=== PATIENT | male | born 1930 | race Caucasian/White ===

== ENCOUNTER 2017-09-08 14:34 | Inpatient (IN) | payer MEDICARE, OTHER ==
[2017-09-08] MEDS ORDERED: Ondansetron 4 MG/2 ML SDV IVPUSH ONE (14:56)
[2017-09-08] MEDS ORDERED: Sodium Chloride 0.9% 1,000 ML IV SCH (15:00)
[2017-09-08] MEDS ORDERED: Acetaminophen 325 MG Tab PO ONE (15:07)
[2017-09-08] MEDS: Sodium Chloride 0.9% 10 ML Syringe FLUSH PRN (15:19)
--- NOTE | 2017-09-08 15:52 | CT ---
Head CT Technique: Multiple axial sections through the brain were obtained. Intravenous contrast was not utilized. Comparison: No previous intracranial imaging. Findings: Ventricles along with basal cisterns and sulci over the convexities are mildly prominent. Diminished density is noted within the periventricular white matter compatible with small vessel ischemic demyelination change. 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 No evidence of intracranial hemorrhage. No midline shift or mass effect is seen. Visualized sinuses are clear. No acute calvarial abnormality is seen. Impression: 1. Senescent change as described above. No acute intracranial abnormality is identified. Diagnostic code #2
[2017-09-08] MEDS ORDERED: Levofloxacin/Dextrose 5%-Water 750 MG in Premix Bag 1 BAG IV ONE (16:43)
--- NOTE | 2017-09-08 17:01 | EDM.PDOC ---
ED HPI GENERAL MEDICAL PROBLEM - General Chief Complaint: General Stated Complaint: VOMITING/CONFUSION Time Seen by Provider: 09/08/17 14:50 Source of Information: Reports: Patient History Limitations: Reports: No Limitations - History of Present Illness INITIAL COMMENTS - FREE TEXT/NARRATIVE: The patient presents with generalized weakness, fever, cough, nausea, vomiting and diarrhea. The patient was in [place] visiting relatives. He drove home yesterday and today he went to [place] for his brother's . This morning he ate some cereal when he got up. He was not feeling well. He has dementia. He slept most of the way to [place]. They got to [place] and he was stiff and passed out for a short time and vomited. They were close to [facility] and went to the ER. He had a complete work up that includes labs, EKG and CXR. His CBC looked good and his electrolytes were okay. His CXR shows a possible infiltrate in the left. That did not fit his symptoms. He did not have much of a cough. He had no fever and he had no elevated WBC. He was sent home with instructions on vasovagal syncope. They drove home and he was less responsive, more confused, generalized weakness, cough and a fever. He had diarrhea and vomiting. Onset: Gradual Duration: Hour(s): Severity: Moderate Improves with: Reports: None Worsens with: Reports: None Associated Symptoms: Reports: Cough, Fever/Chills, Nausea/Vomiting. Denies: Chest Pain - Related Data Allergies Allergy/AdvReac Type Severity Reaction Status Date / Time No Known Allergies Allergy Verified 09/08/17 16:34 Home Meds: Home Meds Ascorbic Acid [Vitamin C] 500 mg PO DAILY 09/08/17 [History] Bicalutamide [Casodex] 50 mg PO DAILY 09/08/17 [History] Calcium Carbonate [Calcium] 600 mg PO DAILY 09/08/17 [History] Cholecalciferol (Vitamin D3) [Vitamin D3] 1,000 unit PO DAILY 09/08/17 [History] Donepezil [Aricept] 10 mg PO BEDTIME 09/08/17 [History] Memantine [Namenda] 10 mg PO BID 09/08/17 [History] Multivitamin [Multi-Vitamin Daily] 1 each PO DAILY 09/08/17 [History] [place]-3/DHA/Epa/Fish Oil [[place]-3 Fish Oil 1,000 MG Sfgl] 1,000 mg PO DAILY [History] Saw/Vit E/Sod Roxann/Lyc/Beta/Pyg [Prostate Health Caplet] 1 each PO DAILY [History] Vit A/Vit C/Vit E/Zinc/Copper [Preservision] 1 each PO DAILY 09/08/17 [History] Zolpidem [Ambien] 10 mg PO BEDTIME 09/08/17 [History] busPIRone [Buspar] 5 mg PO DAILY 09/08/17 [History] Past Medical History HEENT History: Reports: Cataract, Macular Degeneration Musculoskeletal History: Reports: Arthritis Other Musculoskeletal History: in spine and knees. Oncologic (Cancer) History: Reports: Prostate - Infectious Disease History Infectious Disease History: Reports: Rheumatic Fever Social & Family History - Family History Family Medical History: Noncontributory - Tobacco Use Smoking Status *Q: Never Smoker - Caffeine Use Caffeine Use: Reports: None - Recreational Drug Use Recreational Drug Use: No ED ROS GENERAL - Review of Systems Review Of Systems: See Below Constitutional: Reports: Fever, Chills, Malaise, Weakness, Fatigue HEENT: Reports: No Symptoms Respiratory: Reports: Cough Cardiovascular: Denies: Chest Pain Endocrine: Reports: Fatigue GI/Abdominal: Reports: Diarrhea, Nausea, Vomiting. Denies: Abdominal Pain : Reports: No Symptoms Musculoskeletal: Reports: No Symptoms ED EXAM, GENERAL - Physical Exam Exam: See Below Exam Limited By: No Limitations General Appearance: No Apparent Distress, Lethargic Ears: Normal External Exam Nose: Normal Inspection Throat/Mouth: Other (Dry mucus membranes) Head: Atraumatic, Normocephalic Neck: Normal Inspection Respiratory/Chest: No Respiratory Distress, Lungs Clear, Normal Breath Sounds Cardiovascular: Regular Rate, Rhythm, No Edema, No Murmur GI/Abdominal: Soft, Non-Tender, No Organomegaly, No Mass Back Exam: Normal Inspection Extremities: Normal Inspection Neurological: Alert, Oriented, No Motor/Sensory Deficits EKG INTERPRETATION EKG Date: 09/08/17 Time: 15:18 Rhythm: NSR Rate (Beats/Min): 85 [place]: Normal P-Wave: Present QRS: RBBB Course - Vital Signs Last Recorded V/S: Last Vital Signs Temp 97.9 F 09/08/17 16:31 Pulse 87 09/08/17 17:42 Resp 20 09/08/17 17:42 BP 111/79 09/08/17 17:42 Pulse Ox 96 09/08/17 17:42 - Orders/Labs/Meds Orders: Active Orders 24 hr Category Date Time Status Cardiac Monitoring [RC] . DIRECTED Care 09/08/17 14:56 Active Peripheral IV Care [RC] . DIRECTED Care 09/08/17 14:57 Active CULTURE BLOOD [BC] Stat Lab 09/08/17 14:58 Ordered CULTURE BLOOD [BC] Stat Lab 09/08/17 14:58 Ordered Levofloxacin/Dextrose 5%-Water [Levaquin in D5W 750 MG/ Med 09/08/17 16:43 Active 150 ML] 750 mg Premix Bag 1 bag IV ONETIME Sodium Chloride 0.9% [Normal Saline] 1,000 ml Med 09/08/17 15:00 Active IV .BOLUS Sodium Chloride 0.9% [Normal Saline] 1,300 ml Med 09/08/17 16:52 Active IV ONETIME Sodium Chloride 0.9% [Saline Flush] Med 09/08/17 14:56 Active 10 ml FLUSH ASDIRECTED PRN Blood Culture x2 Reflex Set [OM.PC] Stat Oth 09/08/17 14:58 Ordered ED Antiemetic Medication Reflex [OM.PC] Stat Oth 09/08/17 14:57 Ordered Peripheral IV Insertion Adult [OM.PC] Stat Oth 09/08/17 14:56 Ordered Medication Orders Sodium Chloride (Normal Saline) 1,000 mls @ 1,000 mls/hr IV .BOLUS JAMIE Last Admin: 09/08/17 15:27 Dose: 1,000 mls/hr Levofloxacin/Dextrose 750 mg/ (Premix) 150 mls @ 100 mls/hr IV ONETIME ONE Stop: 09/08/17 18:12 Last Admin: 09/08/17 16:56 Dose: 100 mls/hr Sodium Chloride (Normal Saline) 1,300 mls @ 1,000 mls/hr IV ONETIME ONE Stop: 09/08/17 18:09 Last Admin: 09/08/17 17:03 Dose: 1,000 mls/hr Sodium Chloride (Saline Flush) 10 ml FLUSH ASDIRECTED PRN PRN Reason: Keep Vein Open Last Admin: 09/08/17 15:19 Dose: 10 ml Labs: Laboratory Tests 09/08/17 09/08/17 09/08/17 Range/Units 14:56 14:56 16:00 WBC 6.61 (4.23-9.07) K/mm3 RBC 4.81 (4.63-6.08) M/mm3 Hgb 14.9 (13.7-17.5) gm/L Hct 44.4 (40.1-51.0) % MCV 92.3 H (79.0-92.2) fl MCH 31.0 (25.7-32.2) pg MCHC 33.6 (32.2-35.5) g/dl RDW Std Deviation 44.7 H (35.1-43.9) fL Plt Count 194 (163-337) K/mm3 MPV 11.0 (9.4-12.3) fl Neut % (Auto) 93.9 H (34.0-67.9) % Lymph % (Auto) 3.0 L (21.8-53.1) % [place] % (Auto) 2.7 L (5.3-12.2) % Eos % (Auto) 0 L (0.8-7.0) Baso % (Auto) 0.2 (0.1-1.2) % Neut # (Auto) 6.21 H (1.78-5.38) K/mm3 Lymph # (Auto) 0.20 L (1.32-3.57) K/mm3 [place] # (Auto) 0.18 L (0.30-0.82) K/mm3 Eos # (Auto) 0.00 L (0.04-0.54) K/mm3 Baso # (Auto) 0.01 (0.01-0.08) K/mm3 Manual Slide Review Normal smear Sodium 140 (136-145) mEq/L Potassium 3.9 (3.5-5.1) mEq/L Chloride 104 (98-107) mEq/L Carbon Dioxide 20 L (21-32) mEq/L Anion Gap 19.9 H (5-15) BUN 35 H (7-18) mg/dL Creatinine 1.4 H (0.7-1.3) mg/dL Est Cr Clr Drug Dosing 32.28 mL/min Estimated GFR (MDRD) 48 (>60) mL/min BUN/Creatinine Ratio 25.0 H (14-18) Glucose 169 H (83-115) mg/dL Lactic Acid (0.4-2.0) mmol/L Calcium 8.6 (8.5-10.1) mg/dL Total Bilirubin 1.1 H (0.2-1.0) mg/dL AST 28 (15-37) U/L ALT 31 (16-63) U/L Alkaline Phosphatase 75 (46-116) U/L Troponin I < 0.017 (0.00-0.056) ng/mL Total Protein 7.2 (6.4-8.2) g/dl Albumin 3.8 (3.4-5.0) g/dl Globulin 3.4 gm/dL Albumin/Globulin Ratio 1.1 (1-2) Urine Color Dark yellow (Yellow) Urine Appearance Slt cloudy H (Clear) Urine pH 5.5 (5.0-8.0) Ur Specific [place] > or = 1.030 (1.005-1.030) Urine Protein 2+ H (Negative) Urine Glucose (UA) Negative (Negative) Urine Ketones Trace H (Negative) Urine Occult Blood Negative (Negative) Urine Nitrite Negative (Negative) Urine Bilirubin 1+ H (Negative) Urine Urobilinogen 0.2 (0.2-1.0) Ur Leukocyte Esterase Negative (Negative) Urine RBC 0-5 (0-5) /hpf Urine WBC 0-5 (0-5) /hpf Ur Epithelial Cells 5-10 H (0-5) /hpf Ur Renal Epithelial Cell 0-5 (0-5) /hpf Amorphous Sediment Moderate H (NOT SEEN) /hpf Urine Bacteria Moderate H (FEW) /hpf Hyaline Casts 5-10 H (0-5) /lpf Urine Mucus Not seen (FEW) /hpf 09/08/17 Range/Units 16:43 WBC (4.23-9.07) K/mm3 RBC (4.63-6.08) M/mm3 Hgb (13.7-17.5) gm/L Hct (40.1-51.0) % MCV (79.0-92.2) fl MCH (25.7-32.2) pg MCHC (32.2-35.5) g/dl RDW Std Deviation (35.1-43.9) fL Plt Count (163-337) K/mm3 MPV (9.4-12.3) fl Neut % (Auto) (34.0-67.9) % Lymph % (Auto) (21.8-53.1) % [place] % (Auto) (5.3-12.2) % Eos % (Auto) (0.8-7.0) Baso % (Auto) (0.1-1.2) % Neut # (Auto) (1.78-5.38) K/mm3 Lymph # (Auto) (1.32-3.57) K/mm3 [place] # (Auto) (0.30-0.82) K/mm3 Eos # (Auto) (0.04-0.54) K/mm3 Baso # (Auto) (0.01-0.08) K/mm3 Manual Slide Review Sodium (136-145) mEq/L Potassium (3.5-5.1) mEq/L Chloride (98-107) mEq/L Carbon Dioxide (21-32) mEq/L Anion Gap (5-15) BUN (7-18) mg/dL Creatinine (0.7-1.3) mg/dL Est Cr Clr Drug Dosing mL/min Estimated GFR (MDRD) (>60) mL/min BUN/Creatinine Ratio (14-18) Glucose (83-115) mg/dL Lactic Acid 1.8 (0.4-2.0) mmol/L Calcium (8.5-10.1) mg/dL Total Bilirubin (0.2-1.0) mg/dL AST (15-37) U/L ALT (16-63) U/L Alkaline Phosphatase (46-116) U/L Troponin I (0.00-0.056) ng/mL Total Protein (6.4-8.2) g/dl Albumin (3.4-5.0) g/dl Globulin gm/dL Albumin/Globulin Ratio (1-2) Urine Color (Yellow) Urine Appearance (Clear) Urine pH (5.0-8.0) Ur Specific [place] (1.005-1.030) Urine Protein (Negative) Urine Glucose (UA) (Negative) Urine Ketones (Negative) Urine Occult Blood (Negative) Urine Nitrite (Negative) Urine Bilirubin (Negative) Urine Urobilinogen (0.2-1.0) Ur Leukocyte Esterase (Negative) Urine RBC (0-5) /hpf Urine WBC (0-5) /hpf Ur Epithelial Cells (0-5) /hpf Ur Renal Epithelial Cell (0-5) /hpf Amorphous Sediment (NOT SEEN) /hpf Urine Bacteria (FEW) /hpf Hyaline Casts (0-5) /lpf Urine Mucus (FEW) /hpf Meds: Medications Generic Name Dose Route Start Last Admin Trade Name Reese PRN Reason Stop Dose Admin Sodium Chloride 1,000 mls @ 1,000 mls/hr 09/08/17 15:00 09/08/17 15:27 Normal Saline IV 1,000 mls/hr .BOLUS JAMIE Administration Levofloxacin/Dextrose 750 mg/ 150 mls @ 100 mls/hr 09/08/17 16:43 09/08/17 16 :56 Premix IV 09/08/17 18:12 100 mls/hr ONETIME ONE Administration Sodium Chloride 1,300 mls @ 1,000 mls/hr 09/08/17 16:52 09/08/17 17:03 Normal Saline IV 09/08/17 18:09 1,000 mls/hr ONETIME ONE Administration Sodium Chloride 10 ml 09/08/17 14:56 09/08/17 15:19 Saline Flush FLUSH 10 ml ASDIRECTED PRN Administration Keep Vein Open Discontinued Medications Generic Name Dose Route Start Last Admin Trade Name Reese PRN Reason Stop Dose Admin Acetaminophen 975 mg 09/08/17 15:07 09/08/17 15:18 Tylenol PO 09/08/17 15:08 975 mg ONETIME ONE Administration Ondansetron HCl 4 mg 09/08/17 14:56 09/08/17 15:19 Zofran IVPUSH 09/08/17 14:57 4 mg ONETIME ONE Administration - Re-Assessments/Exams Free Text/Narrative Re-Assessment/Exam: 09/08/17 17:57 I ordered an IV NS 1L bolus, EKG, labs and a CT of his head. The EKG shows a NSR and RBBB. His head CT shows senescent changes. No acute intracranial abnormality is identified. His WBC was normal. His anion gap was 19.9. His creatinine was elevated at 1.4. His glucose was elevated at 169. His lactic acid was normal. His troponin was negative. His UA shows no UTI. His CXR done at [facility] in [place] shows a left middle lobe infiltrate. He is septic with a fever of 102 and rapid respiratory rate. I ordered blood cultures and levaquin 750mg IV. I also gave him tylenol 975mg IV. I ordered another bolus to bring him to the 30ml/kg recommended dose of 2.3L. He is more alert now. I talked with the family about DNR status. They have the paperwork at home and his will bring it back. I talked with Dr Daugherty and he agreed to the admission. Departure - Departure Time of Disposition: 18:05 Disposition: Admitted As Inpatient 64 Condition: Serious Clinical Impression: Dehydration Pneumonia Qualifiers: Pneumonia type: due to unspecified organism Laterality: left Lung location: upper lobe of lung Qualified Code(s): J18.1 - Lobar pneumonia, unspecified organism Sepsis Qualifiers: Sepsis type: sepsis due to unspecified organism Qualified Code(s): A41.9 - Sepsis, unspecified organism Diarrhea Qualifiers: Diarrhea type: unspecified type Qualified Code(s): R19.7 - Diarrhea, unspecified - Discharge Information - My Orders Last 24 Hours: My Active Orders 09/08/17 14:56 Cardiac Monitoring [RC] . DIRECTED Sodium Chloride 0.9% [Saline Flush] 10 ml FLUSH ASDIRECTED PRN Peripheral IV Insertion Adult [OM.PC] Stat 09/08/17 14:57 Peripheral IV Care [RC] . DIRECTED ED Antiemetic Medication Reflex [OM.PC] Stat 09/08/17 14:58 CULTURE BLOOD [BC] Stat CULTURE BLOOD [BC] Stat Blood Culture x2 Reflex Set [OM.PC] Stat 09/08/17 15:00 Sodium Chloride 0.9% [Normal Saline] 1,000 ml IV .BOLUS 09/08/17 16:43 Levofloxacin/Dextrose 5%-Water [Levaquin in D5W 750 MG/150 ML] 750 mg Premix Bag 1 bag IV ONETIME 09/08/17 16:52 Sodium Chloride 0.9% [Normal Saline] 1,300 ml IV ONETIME - Assessment/Plan Last 24 Hours: My Active Orders 09/08/17 14:56 Cardiac Monitoring [RC] . DIRECTED Sodium Chloride 0.9% [Saline Flush] 10 ml FLUSH ASDIRECTED PRN Peripheral IV Insertion Adult [OM.PC] Stat 09/08/17 14:57 Peripheral IV Care [RC] . DIRECTED ED Antiemetic Medication Reflex [OM.PC] Stat 09/08/17 14:58 CULTURE BLOOD [BC] Stat CULTURE BLOOD [BC] Stat Blood Culture x2 Reflex Set [OM.PC] Stat 09/08/17 15:00 Sodium Chloride 0.9% [Normal Saline] 1,000 ml IV .BOLUS 09/08/17 16:43 Levofloxacin/Dextrose 5%-Water [Levaquin in D5W 750 MG/150 ML] 750 mg Premix Bag 1 bag IV ONETIME 09/08/17 16:52 Sodium Chloride 0.9% [Normal Saline] 1,300 ml IV ONETIME
[2017-09-08] MEDS ORDERED: Ibuprofen 600 MG Tab PO ONE (18:05)
[2017-09-08] MEDS ORDERED: Ibuprofen 400 MG Tab PO PRN (18:28)
[2017-09-08] MEDS ORDERED: Promethazine 6.25 MG in Sodium Chloride 0.9% 50 ML IV PRN (18:28)
[2017-09-08] MEDS ORDERED: Polyethylene Glycol 3350 Powder 17 GM Packet PO PRN (18:28)
[2017-09-08] MEDS ORDERED: Acetaminophen/HYDROcodone 325-5 MG Tab PO PRN (18:28)
[2017-09-08] MEDS ORDERED: Acetaminophen 325 MG Tab PO PRN (18:28)
[2017-09-08] MEDS ORDERED: HYDROmorphone 1 MG/ML Syringe IVPUSH PRN (18:28)
[2017-09-08] MEDS ORDERED: Docusate Sodium 100 MG Cap PO PRN (18:28)
[2017-09-08] MEDS ORDERED: LORazepam 2 MG/ML SDV IV PRN (18:28)
[2017-09-08] MEDS ORDERED: Bisacodyl 5 MG Tab PO PRN (18:28)
[2017-09-08] MEDS ORDERED: Ondansetron 4 MG/2 ML SDV IV PRN (18:28)
[2017-09-08] MEDS ORDERED: Albuterol/Ipratropium 3.0-0.5 MG/3 ML Neb Soln NEB PRN (18:28)
[2017-09-08] MEDS ORDERED: Sodium Chloride 0.9% 1,000 ML ONE (18:31)
[2017-09-08] MEDS ORDERED: hydrALAZINE 20 MG/ML SDV IVPUSH PRN (18:40)
[2017-09-08] MEDS ORDERED: Metoprolol Tartrate 5 MG/5 ML SDV IVPUSH PRN (18:40)
[2017-09-08] MEDS ORDERED: Dextrose 5%-0.9% NaCl 1,000 ML IV SCH (19:00)
--- NOTE | 2017-09-08 20:36 | PCM.HP ---
H&P History of Present Illness - General Date of Service: 09/08/17 Admit Problem/Dx: Admission Diagnosis/Problem Admission Diagnosis/Problem Pneumonia Source of Information: Patient, Old Records, Provider, RN, RN Notes Reviewed History Limitations: Reports: No Limitations - History of Present Illness Initial Comments - Free Text/Narative: Santo Perez is a 87 yo male who presented to our ED today with generalized weakness, fever, cough, nausea, vomiting, and diarrhea. His reportedly in [place] recently visiting relatives. He drove home yesterday and today he went a [employer] for his brother's . This morning he ate some cereal when he woke up and was not feeling well. He's up also with a [employer]. In [employer] he became stiff, passed out, and vomited. At that time there were very close to [facility] and went to the ER. He had workup including labs, EKG , and CXR. CBC and electrolytes looked good. Chest x-ray showed a possible infiltrate in the left however this did not fit his symptoms. He not have much of a cough, denied any fever, and WBC was normal. He was sent home with instructions on vasovagal syncope. Robaxin Yudi he was becoming less responsive, more confused, had worsening weakness, cough, and a fever. Diarrhea and vomiting. They brought him to the ED at that time. In the ER he had a temp of 100.2. Pulse was 87, respirations 20. BP 111/79. Pulse ox 96%. Telemetry was obtained and interpreted by the ED provider as normal sinus rhythm at a rate of 85 bpm. Right bundle branch block was also noted. Blood cultures were obtained. Labs were also obtained: Arielle he was still normal at 6.61. Hemoglobin good at 14.9. Hematocrit 44.4. He is very slightly macrocytic at 92.3. Platelets were good at 194,000. Neutrophils were elevated at 93.9%. I's showed sodium of 140. Potassium 3.9. Chloride 104. Robaxin was low at 20. Anion gap was quite high at 19.9. BUN was high at 35. Creatinine 1.4. EGFR is 48. Glucose is high at 169. Lactic acid was 1.8. Calcium 8.6. Total bilirubin slightly elevated at 1.1. Liver enzymes looked good with AST at 28, ALT at 31, alkaline phosphatase at 75. Troponin was negative at less than 0.017. Total protein was good at 7.2. Albumin 3.8. UA was negative however color was noted as dark yellow with a slight cloudiness. Specific gravity was greater than or equal to 1.030. Protein was 2+. There is trace urine ketones. 1+ bilirubin. Nitrite and leukocyte esterase were both negative. There is 5-10 epithelial cells moderate amorphus sediment and moderate urine bacteria. Hyaline casts were 5-10 He was given a 2.3L saline bolus, which is 30 mL/kg. 9075 mg acetaminophen and 4 mg Zofran were given. He was started on [address] the head was obtained and notes senescent change. No acute cranial abnormality is identified. This was interpreted by Dr. Hooker, radiologist. They did obtain a chest x-ray was obtained at [facility] in [place] and is believed to show a left middle lobe infiltrate. He did become more alert, however he was still more confused than baseline. He carries a history of: Macular degeneration, arthritis, prostate cancer, urinary incontinence, recurrent UTIs, anxiety and dementia. He was never a smoker. CODE STATUS is DNR. His PCP is Dr. Ordonez at [facility] in [place]. - Related Data Allergies/Adverse Reactions: Allergies Allergy/AdvReac Type Severity Reaction Status Date / Time No Known Allergies Allergy Verified 09/08/17 16:34 Home Medications: Home Meds Ascorbic Acid [Vitamin C] 500 mg PO DAILY 09/08/17 [History] Bicalutamide [Casodex] 50 mg PO DAILY 09/08/17 [History] Calcium Carbonate [Calcium] 600 mg PO DAILY 09/08/17 [History] Cholecalciferol (Vitamin D3) [Vitamin D3] 1,000 unit PO DAILY 09/08/17 [History] Donepezil [Aricept] 10 mg PO BEDTIME 09/08/17 [History] Memantine [Namenda] 10 mg PO BID 09/08/17 [History] Multivitamin [Multi-Vitamin Daily] 1 each PO DAILY 09/08/17 [History] Petoskey-3/DHA/Epa/Fish Oil [Petoskey-3 Fish Oil 1,000 MG Sfgl] 1,000 mg PO DAILY [History] Saw/Vit E/Sod Roxann/Lyc/Beta/Pyg [Prostate Health Caplet] 1 each PO DAILY [History] Vit A/Vit C/Vit E/Zinc/Copper [Preservision] 1 each PO DAILY 09/08/17 [History] Zolpidem [Ambien] 10 mg PO BEDTIME 09/08/17 [History] busPIRone [Buspar] 5 mg PO DAILY 09/08/17 [History] Past Medical History HEENT History: Reports: Cataract, Hard of Hearing, Macular Degeneration Gastrointestinal History: Reports: Other (See Below) Genitourinary History: Reports: Urinary Incontinence, UTI, Recurrent Other Genitourinary History: UTI leading to sepsis in the past, prostatitis Musculoskeletal History: Reports: Arthritis Other Musculoskeletal History: in spine and knees and neck. Psychiatric History: Reports: Anxiety, Dementia Other Psychiatric History: Excerise helps with anxiety. Oncologic (Cancer) History: Reports: Prostate - Infectious Disease History Infectious Disease History: Reports: Rheumatic Fever - Past Surgical History HEENT Surgical History: Reports: Cataract Surgery Other HEENT Surgeries/Procedures: on one eye. GI Surgical History: Reports: Hernia Repair/Other Other GI Surgeries/Procedures: Unsure of type of hernia. Male Surgical History: Reports: Prostate Biopsy Musculoskeletal Surgical History: Reports: None Social & Family History - Family History Family Medical History: Noncontributory HEENT: Reports: Hearing Impairment Neurological: Reports: Parkinson's Psychiatric: Reports: Anxiety, Other (See Below) Other Psychiatric Family History: Dementia Oncologic: Reports: Colon Other Oncologic Family History: Multiple myloma - Tobacco Use Smoking Status *Q: Never Smoker Second Hand Smoke Exposure: No - Caffeine Use Caffeine Use: Reports: Soda Other Caffeine Use: one soda per day and maybe a cup of coffee - Alcohol Use Days Per Week of Alcohol Use: 1 Number of Drinks Per Day: 1 Total Drinks Per Week: 1 Date of Last Drink: 09/04/17 Time of Last Drink: 18:00 - Recreational Drug Use Recreational Drug Use: No H&P Review of Systems - Review of Systems: Review Of Systems: Unable To Obtain Free Text/Narrative: Patient is still very confused. He is alert to person and place but not time. He has multiple questions repeatedly. His had left prior to me getting in to talk with him so his review of systems was not reliable. In reviewing the ED note he came in with fever, chills, malaise, weakness, fatigue. He reported a cough along with diarrhea, nausea, and vomiting. He denied any chest pain, shortness of breath, or abdominal pain. I did attempt to explain the patient why he is in the hospital and his treatment plan. He is a very high fall risk due to his confusion. Exam - Exam Exam: See Below - Vital Signs Vital Signs: Last Vital Signs Temp 98.8 F 09/08/17 19:51 Pulse 78 09/08/17 19:51 Resp 18 09/08/17 19:51 BP 103/53 L 09/08/17 19:51 Pulse Ox 95 09/08/17 19:51 Weight: 162 lb 3.2 oz - Exam Quality Assessment: Supplemental Oxygen, DVT Prophylaxis General: Alert, Cooperative. No: Mild Distress HEENT: Conjunctiva Clear, EACs Clear, EOMI, Hearing Intact, Nares Patent, Normal Nasal Septum, Posterior Pharynx Clear, Other (Dry oral mucosa ), PERRLA Neck: Supple, Trachea Midline, JVD, Thyromegaly Lungs: Clear to Auscultation, Normal Respiratory Effort. No: Crackles, Rales, Rhonchi, Rub, Wheezing Cardiovascular: Regular Rate, Regular Rhythm GI/Abdominal Exam: Normal Bowel Sounds, Soft, Non-Tender, No Organomegaly, No Distention, No Abnormal Bruit, No Mass, Pelvis Stable (Male) Exam: Deferred Rectal (Males) Exam: Deferred Back Exam: Normal Inspection, Full Range of Motion, Other (scattered seborrheic keratosis) Extremities: Normal Inspection, Normal Range of Motion, Non-Tender, No Pedal Edema, Normal Capillary Refill Peripheral Pulses: 2+: Radial (L), Radial (R), Posterior Tibial (L), Posterior Tibial (R), Dorsalis Pedis (L), Dorsalis Pedis (R) Skin: Warm, Dry, Intact Neurological: Cranial Nerves Intact (Grossly) Neuro Extensive - Mental Status: Alert, Disorientation to Time, Memory Loss- Recent Events. No: Disorientation to Person, Disorientation to Place Neuro Extensive - Motor, Sensory, Reflexes: CN II-XII Intact (Grossly) Psychiatric: Alert - Patient Data Result Diagrams: 09/08/17 14:56 09/08/17 14:56 *Q Meaningful Use (ADM) - VTE *Q VTE Criteria *Q: - Stroke *Q Stroke Criteria *Q: - AMI *Q AMI Criteria *Q: - Problem List (1) Pneumonia SNOMED Code(s): 547871623 ICD Code: J18.9 - PNEUMONIA, UNSPECIFIED ORGANISM Status: Acute Priority : High Current Visit: Yes Qualifiers: Pneumonia type: due to unspecified organism Laterality: left Lung location: upper lobe of lung Qualified Code(s): J18.1 - Lobar pneumonia, unspecified organism (2) Dehydration SNOMED Code(s): 92789496 ICD Code: E86.0 - DEHYDRATION Status: Acute Priority: High Current Visit: Yes (3) Diarrhea SNOMED Code(s): 80625283 ICD Code: R19.7 - DIARRHEA, UNSPECIFIED Status: Acute Priority: High Current Visit: Yes Qualifiers: Diarrhea type: unspecified type Qualified Code(s): R19.7 - Diarrhea, unspecified (4) Sepsis SNOMED Code(s): 51706870 ICD Code: A41.9 - SEPSIS, UNSPECIFIED ORGANISM Status: Acute Priority: High Current Visit: Yes Qualifiers: Sepsis type: sepsis due to unspecified organism Qualified Code(s): A41.9 - Sepsis, unspecified organism (5) Dementia SNOMED Code(s): 83122988 ICD Code: F03.90 - UNSPECIFIED DEMENTIA WITHOUT BEHAVIORAL DISTURBANCE Status: Acute Current Visit: Yes Qualifiers: Dementia type: unspecified type Dementia behavioral disturbance: without behavioral disturbance Qualified Code(s): F03.90 - Unspecified dementia without behavioral disturbance (6) Acute renal injury SNOMED Code(s): 57689909 ICD Code: N17.9 - ACUTE KIDNEY FAILURE, UNSPECIFIED Status: Acute Priority: High Current Visit: Yes Problem List Initiated/Reviewed/Updated: Yes Orders Last 24hrs: Active Orders 24 hr Category Date Time Status Patient Status [ADT] Routine ADT 09/08/17 17:30 Active Antiembolic Devices [RC] QSHIFT Care 09/08/17 18:46 Active Height and Weight [RC] 04 Care 09/08/17 18:28 Active Intake and Output [RC] 04,16 Care 09/08/17 18:29 Active Oxygen Therapy [RC] PRN Care 09/08/17 18:28 Active RT Aerosol Therapy [RC] ASDIRECTED Care 12/28/17 18:31 Active Up With Assistance [RC] ASDIRECTED Care 09/08/17 18:28 Active Up ad Emelina [RC] ASDIRECTED Care 09/08/17 18:28 Active VTE/DVT Education [RC] PER UNIT ROUTINE Care 09/08/17 18:28 Active Vital Signs [RC] Q4HR Care 09/08/17 18:28 Active Consult to Case Management [CONS] Routine Cons 09/08/17 18:33 Active Consult to Manager Motor [CONS] Routine Cons 09/08/17 18:33 Active Consult to Spiritual Care [CONS] Routine Cons 09/08/17 18:33 Active OT Evaluation and Treatment [CONS] Routine Cons 09/08/17 18:33 Active PT Evaluation and Treatment [CONS] Routine Cons 09/08/17 18:33 Active Respiratory Care Assess and Treatment [CONS] Routine Cons 09/08/17 18:33 Active Regular Diet [DIET] Diet 09/08/17 Dinner Active Chest 1V Frontal [CR] AM Exams 09/10/17 05:11 Ordered BASIC METABOLIC PANEL,BMP [CHEM] AM Lab 09/12/17 05:11 Ordered BASIC METABOLIC PANEL,BMP [CHEM] AM Lab 09/13/17 05:11 Ordered BASIC METABOLIC PANEL,BMP [CHEM] AM Lab 09/09/17 05:11 Ordered BASIC METABOLIC PANEL,BMP [CHEM] AM Lab 09/10/17 05:11 Ordered BASIC METABOLIC PANEL,BMP [CHEM] AM Lab 09/11/17 05:11 Ordered C-REACTIVE PROTEIN [CHEM] AM Lab 09/12/17 05:11 Ordered C-REACTIVE PROTEIN [CHEM] AM Lab 09/13/17 05:11 Ordered C-REACTIVE PROTEIN [CHEM] AM Lab 09/09/17 05:11 Ordered C-REACTIVE PROTEIN [CHEM] AM Lab 09/10/17 05:11 Ordered C-REACTIVE PROTEIN [CHEM] AM Lab 09/11/17 05:11 Ordered CBC WITH AUTO DIFF [HEME] AM Lab 09/12/17 05:11 Ordered CBC WITH AUTO DIFF [HEME] AM Lab 09/13/17 05:11 Ordered CBC WITH AUTO DIFF [HEME] AM Lab 09/09/17 05:11 Ordered CBC WITH AUTO DIFF [HEME] AM Lab 09/10/17 05:11 Ordered CBC WITH AUTO DIFF [HEME] AM Lab 09/11/17 05:11 Ordered CULTURE SPUTUM + SMEAR [RM] Stat Lab 09/08/17 18:33 Uncollected MAGNESIUM [CHEM] AM Lab 09/12/17 05:11 Ordered MAGNESIUM [CHEM] AM Lab 09/13/17 05:11 Ordered MAGNESIUM [CHEM] AM Lab 09/09/17 05:11 Ordered MAGNESIUM [CHEM] AM Lab 09/10/17 05:11 Ordered MAGNESIUM [CHEM] AM Lab 09/11/17 05:11 Ordered Acetaminophen [Tylenol] Med 09/08/17 18:28 Active 650 mg PO Q4H PRN Acetaminophen/HYDROcodone [Troy 325-5 MG] Med 09/08/17 18:28 Active 1 tab PO Q4H PRN Albuterol/Ipratropium [DuoNeb 3.0-0.5 MG/3 ML] Med 09/08/17 18:28 Active 3 ml NEB Q4H PRN Ascorbic Acid [Vitamin C] Med 09/09/17 09:00 Active 500 mg PO DAILY Azithromycin [Zithromax] 500 mg Med 09/09/17 10:00 Active Sodium Chloride 0.9% [Normal Saline] 250 ml IV Q24H Bicalutamide Med 09/09/17 09:00 Pending 50 mg PO DAILY Bisacodyl [Dulcolax] Med 09/08/17 18:28 Active 5 mg PO DAILY PRN Calcium Carbonate Med 09/09/17 09:00 Active 600 mg PO DAILY Cholecalciferol (Vitamin D3) [Vitamin D3] Med 09/09/17 09:00 Active 1,000 units PO DAILY Dextrose 5%-0.9% NaCl [Dextrose 5%-Normal Saline] 1,000 Med 09/08/17 19:00 Active ml IV ASDIRECTED Docusate Sodium [Colace] Med 09/08/17 18:28 Active 100 mg PO BID PRN Docusate Sodium/Sennosides [Senna Plus] Med 09/08/17 18:28 Active 1 tab PO BID PRN Donepezil [Aricept] Med 09/08/17 21:00 Active 10 mg PO BEDTIME Famotidine [Pepcid] Med 09/08/17 21:00 Active 20 mg PO BID Fish Oil/Petoskey-3 Fatty Acids [Fish Oil] Med 09/09/17 09:00 Active 1 gm PO DAILY HYDROmorphone [Dilaudid] Med 09/08/17 18:28 Active 0.25 mg IVPUSH Q2H PRN Ibuprofen [Motrin] Med 09/08/17 18:28 Active 400 mg PO Q6H PRN LORazepam [Ativan] Med 09/08/17 18:28 Active 0.25 mg IV Q6H PRN Magnesium Rep Pharmacy to Dose [Pharmacy to Dose - Med 09/08/17 18:45 Pending Magnesium Replacement] 1 dose .XX ASDIRECTED Memantine [Namenda] Med 09/08/17 21:00 Active 10 mg PO BID Metoprolol Tartrate [Lopressor] Med 09/08/17 18:40 Active 5 mg IVPUSH Q4H PRN Multivitamins,Therapeutic [Thera] Med 09/09/17 09:00 Active 1 each PO DAILY Ondansetron [Zofran] Med 09/08/17 18:28 Active 4 mg IV Q6H PRN Polyethylene Glycol 3350 [MiraLAX] Med 09/08/17 18:28 Active 17 gm PO DAILY PRN Potassium Rep Pharmacy to Dose [Pharmacy to Dose - Med 09/08/17 19:00 Pending Potassium Replacement] 1 dose .XX ASDIRECTED Promethazine [Phenergan] 6.25 mg Med 09/08/17 18:28 Active Sodium Chloride 0.9% [Normal Saline] 50 ml IV Q6H Saccharomyces Boulardii [Florastor] Med 09/09/17 09:00 Active 250 mg PO DAILY Saw/Vit E/Sod Roxann/Lyc/Beta/Pyg [Prostate Health Caplet] Med 09/09/17 09:00 Pending 1 each PO DAILY Temazepam [Restoril] Med 09/08/17 18:28 Active 7.5 mg PO BEDTIME PRN Vit A/Vit C/Vit E/Zinc/Copper [Preservision] Med 09/09/17 09:00 Pending 1 each PO DAILY busPIRone [Buspar] Med 09/09/17 09:00 Active 5 mg PO DAILY cefTRIAXone [Rocephin] 1 gm Med 09/09/17 09:00 Active Sodium Chloride 0.9% [Normal Saline] 100 ml IV Q24H hydrALAZINE [Apresoline] Med 09/08/17 18:40 Active 10 mg IVPUSH Q4H PRN Precautions [COMM] Routine Oth 09/08/17 18:45 Ordered SCD [Sequential Compression Device] [OM.PC] Routine Oth 09/08/17 18:46 Ordered Resuscitation Status Routine Resus Stat 09/08/17 18:28 Ordered Medication Orders Acetaminophen (Tylenol) 650 mg PO Q4H PRN PRN Reason: Pain (Mild 1-3)/fever Hydrocodone Bitart/Acetaminophen (Troy 325-5 Mg) 1 tab PO Q4H PRN PRN Reason: Pain (moderate 4-6) Albuterol/Ipratropium (Duoneb 3.0-0.5 Mg/3 Ml) 3 ml NEB Q4H PRN PRN Reason: Shortness Of Breath/wheezing Ascorbic Acid (Vitamin C) 500 mg PO DAILY JAMIE Bisacodyl (Dulcolax) 5 mg PO DAILY PRN PRN Reason: Constipation Buspirone HCl (Buspar) 5 mg PO DAILY [facility] Calcium Carbonate/Glycine (Calcium Carbonate) 600 mg PO DAILY [facility] Cholecalciferol (Vitamin D3) 1,000 units PO DAILY [facility] Docusate Sodium (Colace) 100 mg PO BID PRN PRN Reason: Constipation Donepezil HCl (Aricept) 10 mg PO BEDTIME JAMIE Famotidine (Pepcid) 20 mg PO BID [facility] Fish Oil (Fish Oil) 1 gm PO DAILY JAMIE Hydralazine HCl (Apresoline) 10 mg IVPUSH Q4H PRN PRN Reason: Hypertension Hydromorphone HCl (Dilaudid) 0.25 mg IVPUSH Q2H PRN PRN Reason: Pain (severe 7-10) Promethazine HCl 6.25 mg/ (Sodium Chloride) 50.25 mls @ 100 mls/hr IV Q6H PRN PRN Reason: Nausea/Vomiting Azithromycin 500 mg/ Sodium (Chloride) 250 mls @ 250 mls/hr IV Q24H [facility] Ceftriaxone Sodium 1 gm/ (Sodium Chloride) 100 mls @ 200 mls/hr IV Q24H JAMIE Dextrose/Sodium Chloride (Dextrose 5%-Normal Saline) 1,000 mls @ 75 mls/hr IV ASDIRECTED JAMIE Ibuprofen (Motrin) 400 mg PO Q6H PRN PRN Reason: Pain (mild 1-3) Lorazepam (Ativan) 0.25 mg IV Q6H PRN PRN Reason: Anxiety Magnesium Sulfate (Pharmacy To Dose - Magnesium Replacement) 1 dose .XX ASDIRECTED [facility] Memantine (Namenda) 10 mg PO BID JAMIE Metoprolol Tartrate (Lopressor) 5 mg IVPUSH Q4H PRN PRN Reason: Tachycardia Multivitamins (Thera) 1 each PO DAILY [facility] Bicalutamide 50mg 50 mg PO DAILY JAMIE Saw/Vit E/Sod Roxann/Lyc/Beta/Pyg [ Prostate Health Caplet] 1 each PO DAILY JAMIE Vit A/Vit C/Vit E/Zinc/Copper [ Preservision] 1 each PO DAILY JAMIE Ondansetron HCl (Zofran) 4 mg IV Q6H PRN PRN Reason: Nausea/Vomiting Polyethylene Glycol (Miralax) 17 gm PO DAILY PRN PRN Reason: Constipation Potassium Chloride (Pharmacy To Dose - Potassium Replacement) 1 dose .XX ASDIRECTED [facility] Saccharomyces Boulardii (Florastor) 250 mg PO DAILY [facility] Senna/Docusate Sodium (Senna Plus) 1 tab PO BID PRN PRN Reason: Constipation Sodium Chloride (Saline Flush) 10 ml FLUSH ASDIRECTED PRN PRN Reason: Keep Vein Open Last Admin: 09/08/17 15:19 Dose: 10 ml Temazepam (Restoril) 7.5 mg PO BEDTIME PRN PRN Reason: Sleep Assessment/Plan Comment:: I/P Pneumonia -Worsening cough without sputum, weakness, chills, malaise, fatigue -WBC 6.61 -CRP ordered -Fever of 102 -Hx/o dementia - ? aspiration -Worsening confusion -Was tachypneic in ED -CXR in [facility] shows left middle lobe infiltrate -Levaquin 750mg given in ED - stop -Will switch to Azithromycin 500mg Q24 and Rocephen 1gm Q24 -Repeat CXR in 48 hrs -Sputum culture - ordered -Blood cultures - pending -RT/IS -Aspiration precautions Sepsis -Questionable -likely 2/2 pneumonia as above -Lactic acid 1.8 -WBC 6.61 -CRP ordered -Fever of 102, increased confusion, and tachypneic in ED -2.3L fluid given in ED (30ml/kg) -Blood cultures obtained -UA negative -fluids as ordered -Rocephen and Azithromycin as above Acute renal injury -likely 2/2 dehydration -unsure of baseline - obtain old records -Dry mucous membranes -Anion gap of 19.9 -Creatinine 1.4 -BUN 35 -eGFR 48 -Avoid nephrotoxic drugs -Fluids as ordered AMS -Hx/o dementia and anxiety -Was quite lethargic when arrived in ED, improved now -Still worse than baseline -likely 2/2 above -A&O to person and place but not time -Aspiration and fall precautions -Avoid medications that can worsen symptoms Chronic: Dementia macular degeneration arthritis hx/o prostate cancer urinary incontinence recurrent UTIs anxiety - stable Plan: Admit to medical floor CM/SW for discharge planning Spiritual care PT/OT GI prophylaxis: pepcid 20mg BID DVT/PE prophylaxis: SCDs and ambulation Routine AM labs Other orders as indicated above Home medications as ordered HIGH FALL RISK Code Status: DNR. His PCP is Dr. Ordonez at [facility] here in [place].
[2017-09-08] MEDS ORDERED: Famotidine 20 MG Tab PO SCH (21:00)
[2017-09-08] MEDS: Dextrose 5%-0.9% NaCl 1,000 ML IV SCH (21:08)
[2017-09-08] MEDS: Memantine 10 MG Tab PO SCH (21:08)
[2017-09-08] MEDS: Temazepam 7.5 MG Cap PO PRN (21:08)
[2017-09-08] MEDS: Donepezil 10 MG Tab PO SCH (21:08)
[2017-09-09] MEDS ORDERED: Albuterol 0.083% 2.5 MG/3 ML Neb Soln NEB PRN (08:14)
--- NOTE | 2017-09-09 08:19 | PCM.PN ---
- General Info Date of Service: 09/09/17 Admission Dx/Problem (Free Text): Admission Diagnosis/Problem Admission Diagnosis/Problem Pneumonia [place] is seen this morning resting comfortably in bed. is present in the room, slept overnight with him. He denies complaints of pain or discomfort this morning. States he slept well. He himself denies coughing but says he is coughing some but nonproductive at this point in time. Energy is significantly improved from yesterday. He ambulated with therapy in the hallway and did quite well this morning. He's been afebrile overnight. Nursing attempted to wean from supplemental oxygen but saturations dropped to 88 -89% on room air earlier this morning. He ate a full breakfast with no nausea vomiting or diarrhea since that time. Functional Status: Reports: Pain Controlled, Urinating. Denies: New Symptoms - Review of Systems General: Reports: Weakness, Fatigue. Denies: Fever HEENT: Reports: No Symptoms Pulmonary: Reports: Cough. Denies: Shortness of Breath, Pleuritic Chest Pain, Sputum Cardiovascular: Reports: No Symptoms. Denies: Chest Pain, Palpitations Gastrointestinal: Reports: No Symptoms. Denies: Diarrhea, Nausea, Vomiting Musculoskeletal: Reports: No Symptoms Neurological: Reports: Other (dementia) Psychiatric: Reports: No Symptoms, Other (dementia) - Patient Data Vitals - Most Recent: Last Vital Signs Temp 97.5 F 09/09/17 04:21 Pulse 50 L 09/09/17 04:21 Resp 18 09/09/17 04:21 BP 107/49 L 09/09/17 04:22 Pulse Ox 96 09/09/17 04:21 Weight - Most Recent: 163 lb 12.8 oz I&O - Last 24 Hours: Intake & Output 09/08/17 09/09/17 09/09/17 22:59 06:59 14:59 Intake Total 1087 Balance 1087 Lab Results Last 24 Hours: Laboratory Results - last 24 hr 09/09/17 09/09/17 Range/Units 06:05 06:05 WBC 9.40 H (4.23-9.07) K/mm3 RBC 4.16 L (4.63-6.08) M/mm3 Hgb 13.0 L (13.7-17.5) gm/L Hct 39.1 L (40.1-51.0) % MCV 94.0 H (79.0-92.2) fl MCH 31.3 (25.7-32.2) pg MCHC 33.2 (32.2-35.5) g/dl RDW Std Deviation 45.6 H (35.1-43.9) fL Plt Count 168 (163-337) K/mm3 MPV 11.0 (9.4-12.3) fl Neut % (Auto) 84.0 H (34.0-67.9) % Lymph % (Auto) 8.4 L (21.8-53.1) % [place] % (Auto) 7.4 (5.3-12.2) % Eos % (Auto) 0 L (0.8-7.0) Baso % (Auto) 0.1 (0.1-1.2) % Neut # (Auto) 7.89 H (1.78-5.38) K/mm3 Lymph # (Auto) 0.79 L (1.32-3.57) K/mm3 [place] # (Auto) 0.70 (0.30-0.82) K/mm3 Eos # (Auto) 0.00 L (0.04-0.54) K/mm3 Baso # (Auto) 0.01 (0.01-0.08) K/mm3 Manual Slide Review Normal smear Sodium 143 (136-145) mEq/L Potassium 4.4 (3.5-5.1) mEq/L Chloride 110 H (98-107) mEq/L Carbon Dioxide 22 (21-32) mEq/L Anion Gap 15.4 H (5-15) BUN 34 H (7-18) mg/dL Creatinine 1.4 H (0.7-1.3) mg/dL Est Cr Clr Drug Dosing 32.28 mL/min Estimated GFR (MDRD) 48 (>60) mL/min BUN/Creatinine Ratio 24.3 H (14-18) Glucose 116 H (83-115) mg/dL Calcium 8.0 L (8.5-10.1) mg/dL Magnesium 2.0 (1.8-2.4) mg/dl C-Reactive Protein 13.7 H* (<1.0) mg/dL Med Orders - Current: Current Medications Acetaminophen (Tylenol) 650 mg PO Q4H PRN PRN Reason: Pain (Mild 1-3)/fever Hydrocodone Bitart/Acetaminophen ([place] 325-5 Mg) 1 tab PO Q4H PRN PRN Reason: Pain (moderate 4-6) Albuterol (Proventil Neb Soln) 2.5 mg NEB Q2H PRN PRN Reason: wheezing/SOB Albuterol/Ipratropium (Duoneb 3.0-0.5 Mg/3 Ml) 3 ml NEB QID [facility] Ascorbic Acid (Vitamin C) 500 mg PO DAILY [facility] Bisacodyl (Dulcolax) 5 mg PO DAILY PRN PRN Reason: Constipation Buspirone HCl (Buspar) 5 mg PO DAILY [facility] Calcium Carbonate/Glycine (Calcium Carbonate) 600 mg PO DAILY [facility] Cholecalciferol (Vitamin D3) 1,000 units PO DAILY [facility] Docusate Sodium (Colace) 100 mg PO BID PRN PRN Reason: Constipation Donepezil HCl (Aricept) 10 mg PO BEDTIME [facility] Last Admin: 09/08/17 21:08 Dose: 10 mg Famotidine (Pepcid) 20 mg PO DAILY [facility] Fish Oil (Fish Oil) 1 gm PO DAILY [facility] Guaifenesin (Mucinex) 1,200 mg PO BID [facility] Hydralazine HCl (Apresoline) 10 mg IVPUSH Q4H PRN PRN Reason: Hypertension Hydromorphone HCl (Dilaudid) 0.25 mg IVPUSH Q2H PRN PRN Reason: Pain (severe 7-10) Promethazine HCl 6.25 mg/ (Sodium Chloride) 50.25 mls @ 100 mls/hr IV Q6H PRN PRN Reason: Nausea/Vomiting Azithromycin 500 mg/ Sodium (Chloride) 250 mls @ 250 mls/hr IV Q24H [facility] Ceftriaxone Sodium 1 gm/ (Sodium Chloride) 100 mls @ 200 mls/hr IV Q24H [facility] Dextrose/Sodium Chloride (Dextrose 5%-Normal Saline) 1,000 mls @ 75 mls/hr IV ASDIRECTED [facility] Last Admin: 09/08/17 21:08 Dose: 75 mls/hr Ibuprofen (Motrin) 400 mg PO Q6H PRN PRN Reason: Pain (mild 1-3) Lorazepam (Ativan) 0.25 mg IV Q6H PRN PRN Reason: Anxiety Magnesium Sulfate (Pharmacy To Dose - Magnesium Replacement) 1 dose .XX ASDIRECTED [facility] Memantine (Namenda) 10 mg PO BID [facility] Last Admin: 09/08/17 21:08 Dose: 10 mg Metoprolol Tartrate (Lopressor) 5 mg IVPUSH Q4H PRN PRN Reason: Tachycardia Multivitamins (Thera) 1 each PO DAILY [facility] Ondansetron HCl (Zofran) 4 mg IV Q6H PRN PRN Reason: Nausea/Vomiting Bicalutamide 50mg 0 each PO DAILY [facility] Saw/Vit E/Sod Roxann/Lyc/Beta/Pyg [ Prostate Health Caplet] 0 each PO DAILY [facility] Polyethylene Glycol (Miralax) 17 gm PO DAILY PRN PRN Reason: Constipation Potassium Chloride (Pharmacy To Dose - Potassium Replacement) 1 dose .XX ASDIRECTED [facility] Saccharomyces Boulardii (Florastor) 250 mg PO DAILY [facility] Senna/Docusate Sodium (Senna Plus) 1 tab PO BID PRN PRN Reason: Constipation Sodium Chloride (Saline Flush) 10 ml FLUSH ASDIRECTED PRN PRN Reason: Keep Vein Open Last Admin: 09/08/17 15:19 Dose: 10 ml Temazepam (Restoril) 7.5 mg PO BEDTIME PRN PRN Reason: Sleep Last Admin: 09/08/17 21:08 Dose: 7.5 mg Vit A/Vit C/Vit E/Selen/Cu/Zn/Lutei (Icaps Mv) 1 tab PO DAILY [facility] Discontinued Medications Acetaminophen (Tylenol) 975 mg PO ONETIME ONE Stop: 09/08/17 15:08 Last Admin: 09/08/17 15:18 Dose: 975 mg Albuterol/Ipratropium (Duoneb 3.0-0.5 Mg/3 Ml) 3 ml NEB Q4H PRN PRN Reason: Shortness Of Breath/wheezing Famotidine (Pepcid) 20 mg PO BID [facility] Last Admin: 09/08/17 21:08 Dose: 20 mg Sodium Chloride (Normal Saline) 1,000 mls @ 1,000 mls/hr IV .BOLUS [facility] Last Admin: 09/08/17 15:27 Dose: 1,000 mls/hr Levofloxacin/Dextrose 750 mg/ (Premix) 150 mls @ 100 mls/hr IV ONETIME ONE Stop: 09/08/17 18:12 Last Admin: 09/08/17 16:56 Dose: 100 mls/hr Sodium Chloride (Normal Saline) 1,300 mls @ 1,000 mls/hr IV ONETIME ONE Stop: 09/08/17 18:09 Last Admin: 09/08/17 19:30 Dose: 1,000 mls/hr Sodium Chloride (Normal Saline) Confirm Administered Dose 1,000 mls @ as directed .ROUTE .STK-MED ONE Stop: 09/08/17 18:32 Last Admin: 09/08/17 18:58 Dose: Not Given Ibuprofen (Motrin) 600 mg PO ONETIME ONE Stop: 09/08/17 18:06 Last Admin: 09/08/17 18:29 Dose: 600 mg Ondansetron HCl (Zofran) 4 mg IVPUSH ONETIME ONE Stop: 09/08/17 14:57 Last Admin: 09/08/17 15:19 Dose: 4 mg - Exam Quality Assessment: Supplemental Oxygen, DVT Prophylaxis General: Alert, Cooperative, No Acute Distress HEENT: Pupils Equal, EOMI, Mucous Membr. Moist/[place] Neck: Supple Lungs: Normal Respiratory Effort, Decreased Breath Sounds (bases) Cardiovascular: Regular Rate, Regular Rhythm, No Murmurs GI/Abdominal Exam: Normal Bowel Sounds, Soft, Non-Tender (Male) Exam: Deferred Extremities: Normal Inspection, No Pedal Edema, Normal Capillary Refill Peripheral Pulses: 2+: Radial (L), Radial (R), Posterior Tibial (L), Posterior Tibial (R), Dorsalis Pedis (L), Dorsalis Pedis (R) Neurological: No New Focal Deficit Psy/Mental Status: Alert, Normal Affect, Normal Mood - Problem List & Annotations (1) Pneumonia SNOMED Code(s): 214543470 Code(s): J18.9 - PNEUMONIA, UNSPECIFIED ORGANISM Status: Acute Priority: High Current Visit: Yes Qualifiers: Pneumonia type: due to unspecified organism Laterality: left Lung location: upper lobe of lung Qualified Code(s): J18.1 - Lobar pneumonia, unspecified organism (2) Acute renal injury SNOMED Code(s): 48663960 Code(s): N17.9 - ACUTE KIDNEY FAILURE, UNSPECIFIED Status: Acute Priority : High Current Visit: Yes (3) Dehydration SNOMED Code(s): 57357528 Code(s): E86.0 - DEHYDRATION Status: Acute Priority: High Current Visit : Yes (4) Diarrhea SNOMED Code(s): 21541422 Code(s): R19.7 - DIARRHEA, UNSPECIFIED Status: Acute Priority: High Current Visit: Yes Qualifiers: Diarrhea type: unspecified type Qualified Code(s): R19.7 - Diarrhea, unspecified (5) Dementia SNOMED Code(s): 02138873 Code(s): F03.90 - UNSPECIFIED DEMENTIA WITHOUT BEHAVIORAL DISTURBANCE Status: Chronic Priority: Medium Current Visit: Yes Qualifiers: Dementia type: Alzheimer's disease Alzheimer's disease onset: unspecified onset Dementia behavioral disturbance: without behavioral disturbance Qualified Code(s): G30.9 - Alzheimer's disease, unspecified; F02.80 - Dementia in other diseases classified elsewhere without behavioral disturbance; F02.80 - Dementia in other diseases classified elsewhere without behavioral disturbance; F02.80 - Dementia in other diseases classified elsewhere without behavioral disturbance - Problem List Review Problem List Initiated/Reviewed/Updated: Yes - My Orders Last 24 Hours: My Active Orders 09/09/17 07:55 CULTURE URINE [RM] Routine 09/09/17 08:13 RT Incentive Spirometry [RC] Q2HWA RT Flutter Valve Therapy [RT Acapella] [RESPCARE] Routine 09/09/17 08:14 RT Aerosol Therapy [RC] ASDIRECTED RT Aerosol Therapy [RC] ASDIRECTED Albuterol [Proventil Neb Soln] 2.5 mg NEB Q2H PRN 09/09/17 09:00 Albuterol/Ipratropium [DuoNeb 3.0-0.5 MG/3 ML] 3 ml NEB QID guaiFENesin [Mucinex] 1,200 mg PO BID - Plan Plan:: I/P Pneumonia -Worsening cough without sputum, weakness, chills, malaise, fatigue--- symptomatically improved this morning. -WBC 6.61--> 9.4 -CRP ordered--13.7 -Fever of 102---resolved -Hx/o dementia - ? aspiration -Worsening confusion -- improved today -Was tachypneic in ED--resolved this morning -CXR in [facility] shows left middle lobe infiltrate -Levaquin 750mg given in ED - stop; Will switch to Azithromycin 500mg Q24 and Rocephen 1gm Q24 -Repeat CXR in 48 hrs -Sputum culture - ordered -Blood cultures - pending -RT/IS/FV, Neb tx's- QID duoneb, PRN albuterol -Mucinex -Aspiration precautions -Mycoplasma and strep pneumo antigens ordered Acute renal injury -likely 2/2 dehydration -unsure of baseline - obtain old records -Dry mucous membranes -Anion gap of 19.9, Creatinine 1.4, BUN 35, eGFR 48 --- creatinine stable at 1.4 today -Avoid nephrotoxic drugs -Fluids as ordered N/V/D-- resolved today thus far -Yesterday reports of n/v/d. -Tolerated full breakfast so far this morning. -Lytes WNL today-- monitor AMS -Hx/o dementia and anxiety--- calm and pleasant this morning. -Was quite lethargic when arrived in ED, improved now but still worse than baseline -likely 2/2 above -Aspiration and fall precautions -Avoid medications that can worsen symptoms Resolved: Question of Sepsis----Resolved today -likely 2/2 pneumonia as above -Lactic acid 1.8, WBC 6.61, CRP ordered -Fever of 102, increased confusion, and tachypneic in ED-- all resolved -2.3L fluid given in ED (30ml/kg) -Blood cultures obtained -UA negative -Rocephen and Azithromycin as above Chronic: Dementia macular degeneration arthritis hx/o prostate cancer urinary incontinence recurrent UTIs anxiety - stable Plan: Admit to medical floor CM/SW for discharge planning-- likely DC tomorrow Spiritual care PT/OT GI prophylaxis: pepcid 20mg BID DVT/PE prophylaxis: SCDs and ambulation Routine AM labs Other orders as indicated above Home medications as ordered HIGH FALL RISK Code Status: DNR. His PCP is Dr. Ordonez at [facility] here in [place].
[2017-09-09] MEDS ORDERED: Albuterol/Ipratropium 3.0-0.5 MG/3 ML Neb Soln NEB SCH (09:00)
[2017-09-09] MEDS: Albuterol/Ipratropium 3.0-0.5 MG/3 ML Neb Soln NEB SCH ×3 (09:05→20:37)
[2017-09-09] MEDS: Multivitamins,Therapeutic Tab PO SCH (09:39)
[2017-09-09] MEDS: Cholecalciferol (Vitamin D3) 1,000 Unit Tab PO SCH (09:39)
[2017-09-09] MEDS: Saccharomyces Boulardii (Probiotic) 250 MG Cap PO SCH (09:39)
[2017-09-09] MEDS: Famotidine 20 MG Tab PO SCH (09:39)
[2017-09-09] MEDS: Vit A/Vit C/Vit E/Zinc/Copper [Preservision] PO SCH (09:40)
[2017-09-09] MEDS: guaiFENesin 600 MG Tab.ER PO SCH ×2 (09:40→20:04)
[2017-09-09] MEDS: Calcium Carbonate 600 MG Tab PO SCH (09:40)
[2017-09-09] MEDS: Fish Oil/Omega-3 Fatty Acids 1 Gm Cap PO SCH (09:40)
[2017-09-09] MEDS: Ascorbic Acid 500 MG Tab PO SCH (09:40)
[2017-09-09] MEDS: busPIRone 5 MG Tab PO SCH (09:40)
[2017-09-09] MEDS: Memantine 10 MG Tab PO SCH ×2 (09:40→20:03)
[2017-09-09] MEDS: cefTRIAXone 1 GM in Sodium Chloride 0.9% 100 ML IV SCH (09:45)
[2017-09-09] MEDS: Azithromycin 500 MG in Sodium Chloride 0.9% 250 ML IV SCH (10:30)
[2017-09-09] MEDS: Dextrose 5%-0.9% NaCl 1,000 ML IV SCH ×2 (10:38→23:34)
[2017-09-09] MEDS: Saw/Vit E/Sod Sel/Lyc/Beta/Pyg [Prostate Health Caplet] PO SCH (13:44)
[2017-09-09] MEDS: Donepezil 10 MG Tab PO SCH (20:03)
[2017-09-09] MEDS: Temazepam 7.5 MG Cap PO PRN (20:59)
[2017-09-10] MEDS: Albuterol/Ipratropium 3.0-0.5 MG/3 ML Neb Soln NEB SCH ×4 (06:28→20:47)
[2017-09-10] MEDS: guaiFENesin 600 MG Tab.ER PO SCH ×2 (08:47→20:08)
[2017-09-10] MEDS: cefTRIAXone 1 GM in Sodium Chloride 0.9% 100 ML IV SCH (08:47)
[2017-09-10] MEDS: Fish Oil/Omega-3 Fatty Acids 1 Gm Cap PO SCH (08:48)
[2017-09-10] MEDS: Calcium Carbonate 600 MG Tab PO SCH (08:48)
[2017-09-10] MEDS: Saccharomyces Boulardii (Probiotic) 250 MG Cap PO SCH (08:48)
[2017-09-10] MEDS: Cholecalciferol (Vitamin D3) 1,000 Unit Tab PO SCH (08:48)
[2017-09-10] MEDS: Memantine 10 MG Tab PO SCH ×2 (08:48→20:08)
[2017-09-10] MEDS: Famotidine 20 MG Tab PO SCH (08:48)
[2017-09-10] MEDS: Multivitamins,Therapeutic Tab PO SCH (08:48)
[2017-09-10] MEDS: Ascorbic Acid 500 MG Tab PO SCH (08:48)
[2017-09-10] MEDS: busPIRone 5 MG Tab PO SCH (08:48)
[2017-09-10] MEDS: Vit A/Vit C/Vit E/Zinc/Copper [Preservision] PO SCH (08:48)
[2017-09-10] MEDS: Saw/Vit E/Sod Sel/Lyc/Beta/Pyg [Prostate Health Caplet] PO SCH (08:49)
--- NOTE | 2017-09-10 10:04 | CR ---
Chest: Portable view of the chest was obtained. Comparison: No prior chest x-ray. Heart size appears within normal limits. Tortuous thoracic aorta is seen. Parenchymal density is noted within the left midlung having a nodular appearance. Several old healed right-sided rib fractures are noted. Mild degenerative change is noted within the spine. Impression: 1. Parenchymal nodular density within the left mid lung. This may represent small area of pneumonia but difficult to exclude an actual nodule. If patient's creatinine is satisfactory, contrast-enhanced chest CT could be obtained to further evaluate. 2. Other incidental findings as noted above. Diagnostic code #9
[2017-09-10] MEDS: Azithromycin 500 MG in Sodium Chloride 0.9% 250 ML IV SCH (10:46)
--- NOTE | 2017-09-10 11:46 | PCM.PN ---
- General Info Date of Service: 09/10/17 Functional Status: Reports: Tolerating Diet - Review of Systems General: Reports: No Symptoms HEENT: Reports: No Symptoms Pulmonary: Reports: No Symptoms Cardiovascular: Reports: No Symptoms Gastrointestinal: Reports: No Symptoms Genitourinary: Reports: No Symptoms Musculoskeletal: Reports: No Symptoms Skin: Reports: No Symptoms Neurological: Reports: No Symptoms Psychiatric: Reports: No Symptoms - Patient Data Vitals - Most Recent: Last Vital Signs Temp 37.2 C 09/09/17 23:36 Pulse 67 09/09/17 23:36 Resp 20 09/09/17 23:36 BP 133/95 H 09/09/17 23:36 Pulse Ox 92 L 09/10/17 10:00 Weight - Most Recent: 75.024 kg I&O - Last 24 Hours: Intake & Output 09/09/17 09/10/17 09/10/17 22:59 06:59 14:59 Intake Total 2242 1767 Output Total 400 1300 Balance 1842 467 Lab Results Last 24 Hours: Laboratory Results - last 24 hr 09/10/17 09/10/17 Range/Units 06:30 06:30 WBC 7.06 (4.23-9.07) K/mm3 RBC 3.84 L (4.63-6.08) M/mm3 Hgb 11.8 L (13.7-17.5) gm/L Hct 36.3 L (40.1-51.0) % MCV 94.5 H (79.0-92.2) fl MCH 30.7 (25.7-32.2) pg MCHC 32.5 (32.2-35.5) g/dl RDW Std Deviation 46.0 H (35.1-43.9) fL Plt Count 163 (163-337) K/mm3 MPV 11.2 (9.4-12.3) fl Neut % (Auto) 75.1 H (34.0-67.9) % Lymph % (Auto) 14.2 L (21.8-53.1) % [place] % (Auto) 8.5 (5.3-12.2) % Eos % (Auto) 2.0 (0.8-7.0) Baso % (Auto) 0.1 (0.1-1.2) % Neut # (Auto) 5.30 (1.78-5.38) K/mm3 Lymph # (Auto) 1.00 L (1.32-3.57) K/mm3 [place] # (Auto) 0.60 (0.30-0.82) K/mm3 Eos # (Auto) 0.14 (0.04-0.54) K/mm3 Baso # (Auto) 0.01 (0.01-0.08) K/mm3 Sodium 143 (136-145) mEq/L Potassium 3.7 (3.5-5.1) mEq/L Chloride 114 H (98-107) mEq/L Carbon Dioxide 21 (21-32) mEq/L Anion Gap 11.7 (5-15) BUN 22 H (7-18) mg/dL Creatinine 0.9 (0.7-1.3) mg/dL Est Cr Clr Drug Dosing 50.21 mL/min Estimated GFR (MDRD) > 60 (>60) mL/min BUN/Creatinine Ratio 24.4 H (14-18) Glucose 102 (83-115) mg/dL Calcium 8.5 (8.5-10.1) mg/dL Magnesium 2.0 (1.8-2.4) mg/dl C-Reactive Protein 11.1 H* (<1.0) mg/dL [place] Results Last 24 Hours: Microbiology 09/09/17 16:16 Gram Stain - Preliminary Sputum - Expectorated Med Orders - Current: Current Medications Acetaminophen (Tylenol) 650 mg PO Q4H PRN PRN Reason: Pain (Mild 1-3)/fever Hydrocodone Bitart/Acetaminophen ([place] 325-5 Mg) 1 tab PO Q4H PRN PRN Reason: Pain (moderate 4-6) Albuterol (Proventil Neb Soln) 2.5 mg NEB Q2H PRN PRN Reason: wheezing/SOB Albuterol/Ipratropium (Duoneb 3.0-0.5 Mg/3 Ml) 3 ml NEB QIDRT [facility] Last Admin: 09/10/17 09:58 Dose: 3 ml Ascorbic Acid (Vitamin C) 500 mg PO DAILY [facility] Last Admin: 09/10/17 08:48 Dose: 500 mg Bisacodyl (Dulcolax) 5 mg PO DAILY PRN PRN Reason: Constipation Buspirone HCl (Buspar) 5 mg PO DAILY [facility] Last Admin: 09/10/17 08:48 Dose: 5 mg Calcium Carbonate/Glycine (Calcium Carbonate) 600 mg PO DAILY [facility] Last Admin: 09/10/17 08:48 Dose: 600 mg Cholecalciferol (Vitamin D3) 1,000 units PO DAILY [facility] Last Admin: 09/10/17 08:48 Dose: 1,000 units Docusate Sodium (Colace) 100 mg PO BID PRN PRN Reason: Constipation Donepezil HCl (Aricept) 10 mg PO BEDTIME [facility] Last Admin: 09/09/17 20:03 Dose: 10 mg Famotidine (Pepcid) 20 mg PO DAILY [facility] Last Admin: 09/10/17 08:48 Dose: 20 mg Fish Oil (Fish Oil) 1 gm PO DAILY [facility] Last Admin: 09/10/17 08:48 Dose: 1 gm Guaifenesin (Mucinex) 1,200 mg PO BID [facility] Last Admin: 09/10/17 08:47 Dose: 1,200 mg Hydralazine HCl (Apresoline) 10 mg IVPUSH Q4H PRN PRN Reason: Hypertension Hydromorphone HCl (Dilaudid) 0.25 mg IVPUSH Q2H PRN PRN Reason: Pain (severe 7-10) Promethazine HCl 6.25 mg/ (Sodium Chloride) 50.25 mls @ 100 mls/hr IV Q6H PRN PRN Reason: Nausea/Vomiting Azithromycin 500 mg/ Sodium (Chloride) 250 mls @ 250 mls/hr IV Q24H [facility] Last Admin: 09/10/17 10:46 Dose: 250 mls/hr Ceftriaxone Sodium 1 gm/ (Sodium Chloride) 100 mls @ 200 mls/hr IV Q24H [facility] Last Admin: 09/10/17 08:47 Dose: 200 mls/hr Ibuprofen (Motrin) 400 mg PO Q6H PRN PRN Reason: Pain (mild 1-3) Lorazepam (Ativan) 0.25 mg IV Q6H PRN PRN Reason: Anxiety Magnesium Sulfate (Pharmacy To Dose - Magnesium Replacement) 1 dose .XX ASDIRECTED [facility] Memantine (Namenda) 10 mg PO BID [facility] Last Admin: 09/10/17 08:48 Dose: 10 mg Metoprolol Tartrate (Lopressor) 5 mg IVPUSH Q4H PRN PRN Reason: Tachycardia Multivitamins (Thera) 1 each PO DAILY [facility] Last Admin: 09/10/17 08:48 Dose: 1 each Ondansetron HCl (Zofran) 4 mg IV Q6H PRN PRN Reason: Nausea/Vomiting Bicalutamide 50mg 0 each PO DAILY [facility] Last Admin: 09/10/17 08:49 Dose: Not Given Saw/Vit E/Sod Roxann/Lyc/Beta/Pyg [ Prostate Health Caplet] 0 each PO DAILY [facility] Last Admin: 09/10/17 08:49 Dose: Not Given Polyethylene Glycol (Miralax) 17 gm PO DAILY PRN PRN Reason: Constipation Potassium Chloride (Pharmacy To Dose - Potassium Replacement) 1 dose .XX ASDIRECTED [facility] Saccharomyces Boulardii (Florastor) 250 mg PO DAILY [facility] Last Admin: 09/10/17 08:48 Dose: 250 mg Senna/Docusate Sodium (Senna Plus) 1 tab PO BID PRN PRN Reason: Constipation Sodium Chloride (Saline Flush) 10 ml FLUSH ASDIRECTED PRN PRN Reason: Keep Vein Open Last Admin: 09/08/17 15:19 Dose: 10 ml Temazepam (Restoril) 7.5 mg PO BEDTIME PRN PRN Reason: Sleep Last Admin: 09/09/17 20:59 Dose: 7.5 mg Vit A/Vit C/Vit E/Selen/Cu/Zn/Lutei (Icaps Mv) 1 tab PO DAILY [facility] Last Admin: 09/10/17 08:48 Dose: 1 tab Discontinued Medications Acetaminophen (Tylenol) 975 mg PO ONETIME ONE Stop: 09/08/17 15:08 Last Admin: 09/08/17 15:18 Dose: 975 mg Albuterol/Ipratropium (Duoneb 3.0-0.5 Mg/3 Ml) 3 ml NEB Q4H PRN PRN Reason: Shortness Of Breath/wheezing Albuterol/Ipratropium (Duoneb 3.0-0.5 Mg/3 Ml) 3 ml NEB QID [facility] Famotidine (Pepcid) 20 mg PO BID [facility] Last Admin: 09/08/17 21:08 Dose: 20 mg Sodium Chloride (Normal Saline) 1,000 mls @ 1,000 mls/hr IV .BOLUS [facility] Last Admin: 09/08/17 15:27 Dose: 1,000 mls/hr Levofloxacin/Dextrose 750 mg/ (Premix) 150 mls @ 100 mls/hr IV ONETIME ONE Stop: 09/08/17 18:12 Last Admin: 09/08/17 16:56 Dose: 100 mls/hr Sodium Chloride (Normal Saline) 1,300 mls @ 1,000 mls/hr IV ONETIME ONE Stop: 09/08/17 18:09 Last Admin: 09/08/17 19:30 Dose: 1,000 mls/hr Sodium Chloride (Normal Saline) Confirm Administered Dose 1,000 mls @ as directed .ROUTE .STK-MED ONE Stop: 09/08/17 18:32 Last Admin: 09/08/17 18:58 Dose: Not Given Dextrose/Sodium Chloride (Dextrose 5%-Normal Saline) 1,000 mls @ 75 mls/hr IV ASDIRECTED [facility] Last Admin: 09/09/17 23:34 Dose: 75 mls/hr Ibuprofen (Motrin) 600 mg PO ONETIME ONE Stop: 09/08/17 18:06 Last Admin: 09/08/17 18:29 Dose: 600 mg Ondansetron HCl (Zofran) 4 mg IVPUSH ONETIME ONE Stop: 09/08/17 14:57 Last Admin: 09/08/17 15:19 Dose: 4 mg - Exam Quality Assessment: Supplemental Oxygen, DVT Prophylaxis General: Alert, Cooperative HEENT: Pupils Equal, Pupils Reactive, EOMI Neck: No JVD Lungs: Normal Respiratory Effort Cardiovascular: Regular Rate, Regular Rhythm GI/Abdominal Exam: Normal Bowel Sounds, Soft, Non-Tender, No Organomegaly, No Distention (Male) Exam: Deferred Back Exam: Normal Inspection Extremities: Normal Inspection Skin: Warm Neurological: No New Focal Deficit Psy/Mental Status: Alert - Problem List Review Problem List Initiated/Reviewed/Updated: Yes - Plan Plan:: I/P Pneumonia -Worsening cough without sputum, weakness, chills, malaise, fatigue--- symptomatically improved this morning. -WBC 6.61--> 9.4 -CRP ordered--13.7 -Fever of 102---resolved -Hx/o dementia - ? aspiration -Worsening confusion -- improved today -Was tachypneic in ED--resolved this morning -CXR in [place] at [facility] shows left middle lobe infiltrate -Levaquin 750mg given in ED - stop; Will switch to Azithromycin 500mg Q24 and Rocephen 1gm Q24 -Repeat CXR in 48 hrs -Sputum culture - ordered -Blood cultures - pending -RT/IS/FV, Neb tx's- QID duoneb, PRN albuterol -Mucinex -Aspiration precautions -Mycoplasma and strep pneumo antigens ordered Acute renal injury -likely 2/2 dehydration -unsure of baseline - obtain old records -Dry mucous membranes -Anion gap of 19.9, Creatinine 1.4, BUN 35, eGFR 48 --- creatinine stable at 1.4 today -Avoid nephrotoxic drugs -Fluids as ordered N/V/D-- resolved today thus far -Yesterday reports of n/v/d. -Tolerated full breakfast so far this morning. -Lytes WNL today-- monitor AMS -Hx/o dementia and anxiety--- calm and pleasant this morning. -Was quite lethargic when arrived in ED, improved now but still worse than baseline -likely 2/2 above -Aspiration and fall precautions -Avoid medications that can worsen symptoms Resolved: Question of Sepsis----Resolved today -likely 2/2 pneumonia as above -Lactic acid 1.8, WBC 6.61, CRP ordered -Fever of 102, increased confusion, and tachypneic in ED-- all resolved -2.3L fluid given in ED (30ml/kg) -Blood cultures obtained -UA negative -Rocephen and Azithromycin as above Chronic: Dementia macular degeneration arthritis hx/o prostate cancer urinary incontinence recurrent UTIs anxiety - stable Plan: Admit to medical floor CM/SW for discharge planning-- likely DC tomorrow Spiritual care PT/OT GI prophylaxis: pepcid 20mg BID DVT/PE prophylaxis: SCDs and ambulation Routine AM labs Other orders as indicated above Home medications as ordered HIGH FALL RISK Code Status: DNR. His PCP is Dr. Ordonez at [facility] here in [place].
[2017-09-10] MEDS: Donepezil 10 MG Tab PO SCH (20:08)
[2017-09-10] MEDS: Temazepam 7.5 MG Cap PO PRN (21:48)
[2017-09-11] MEDS: Albuterol/Ipratropium 3.0-0.5 MG/3 ML Neb Soln NEB SCH ×2 (06:27→09:50)
[2017-09-11] MEDS: Saccharomyces Boulardii (Probiotic) 250 MG Cap PO SCH (08:22)
[2017-09-11] MEDS: Calcium Carbonate 600 MG Tab PO SCH (08:22)
[2017-09-11] MEDS: busPIRone 5 MG Tab PO SCH (08:22)
[2017-09-11] MEDS: Vit A/Vit C/Vit E/Zinc/Copper [Preservision] PO SCH (08:23)
[2017-09-11] MEDS: Fish Oil/Omega-3 Fatty Acids 1 Gm Cap PO SCH (08:23)
[2017-09-11] MEDS: guaiFENesin 600 MG Tab.ER PO SCH (08:23)
[2017-09-11] MEDS: Famotidine 20 MG Tab PO SCH (08:24)
[2017-09-11] MEDS: Memantine 10 MG Tab PO SCH (08:24)
[2017-09-11] MEDS: Saw/Vit E/Sod Sel/Lyc/Beta/Pyg [Prostate Health Caplet] PO SCH (08:25)
[2017-09-11] MEDS: Multivitamins,Therapeutic Tab PO SCH (08:25)
[2017-09-11] MEDS: Cholecalciferol (Vitamin D3) 1,000 Unit Tab PO SCH (08:25)
[2017-09-11] MEDS: Ascorbic Acid 500 MG Tab PO SCH (08:25)
[2017-09-11] MEDS: cefTRIAXone 1 GM in Sodium Chloride 0.9% 100 ML IV SCH (08:40)
--- NOTE | 2017-09-11 09:38 | PCM.DCSUM1 ---
Discharge Summary - Hospital Course Free Text/Narrative:: 87 year old male presents with s/s of sepsis secondary to PNA; was treated with IV antibiotics and will be DCd on: Keflex 500 mg TID; Z pack as directed. The patient was treated aggressively with appropriate ATBs as well as fluid; AMS as well as JACK responded rapidly. Primary Dx Sepsis Pneumonia Acute renal insufficiency AMS Alzheimer dementia Diet Usual diet Activity As tolerated Medication Keflex 500 mg TID Z pack as directed Mucinex 1200 mg BID Follow Up PCP - Discharge Data Discharge Date: 09/11/17 Discharge Disposition: Home, Self-Care 01 Condition: Good - Patient Summary/Data Consults: Consultations 09/08/17 18:33 Consult to Case Management [CONS] Routine Consult to Gis Coordinator [CONS] Routine Consult to Spiritual Care [CONS] Routine OT Evaluation and Treatment [CONS] Routine PT Evaluation and Treatment [CONS] Routine Respiratory Care Assess and Treatment [CONS] Routine - Patient Instructions Diet: Usual Diet as Tolerated Activity: As Tolerated Driving: Do Not Drive Showering/Bathing: May Shower Notify Provider of: Fever - Discharge Plan Prescriptions/Med Rec: Azithromycin [Zithromax] 1 packet PO ASDIRECTED #1 packet Cephalexin [Keflex] 500 mg PO TID #15 cap guaiFENesin [Mucinex] 1,200 mg PO BID #20 tab.er Home Medications: Home Meds Ascorbic Acid [Vitamin C] 500 mg PO DAILY 09/08/17 [History] Bicalutamide [Casodex] 50 mg PO DAILY 09/08/17 [History] Calcium Carbonate [Calcium] 600 mg PO DAILY 09/08/17 [History] Cholecalciferol (Vitamin D3) [Vitamin D3] 1,000 unit PO DAILY 09/08/17 [History] Donepezil [Aricept] 10 mg PO BEDTIME 09/08/17 [History] Memantine [Namenda] 10 mg PO BID 09/08/17 [History] Multivitamin [Multi-Vitamin Daily] 1 each PO DAILY 09/08/17 [History] [place]-3/DHA/Epa/Fish Oil [[place]-3 Fish Oil 1,000 MG Sfgl] 1,000 mg PO DAILY [History] Saw/Vit E/Sod Roxann/Lyc/Beta/Pyg [Prostate Health Caplet] 1 each PO DAILY [History] Vit A/Vit C/Vit E/Zinc/Copper [Preservision] 1 each PO DAILY 09/08/17 [History] Zolpidem [Ambien] 10 mg PO BEDTIME 09/08/17 [History] busPIRone [Buspar] 5 mg PO DAILY 09/08/17 [History] Azithromycin [Zithromax] 1 packet PO ASDIRECTED #1 packet 09/11/17 [Rx] Cephalexin [Keflex] 500 mg PO TID #15 cap 09/11/17 [Rx] guaiFENesin [Mucinex] 1,200 mg PO BID #20 tab.er 09/11/17 [Rx] Patient Handouts: Dehydration, Adult, Gwjn-[id number], Nausea, Adult, [id number] , Diarrhea, Adult, [id number], Community-Acquired Pneumonia, Adult, Easy-to- Read Forms: ED Department Discharge Referrals: Martin Ordonez MD [Primary Care Provider] - (Make an appointment to follow-up in 7-10 days.) - Discharge Summary/Plan Comment DC Time >30 min.: No - General Info Date of Service: 09/08/17 Functional Status: Reports: Tolerating Diet - Review of Systems General: Reports: No Symptoms HEENT: Reports: No Symptoms Pulmonary: Reports: No Symptoms Cardiovascular: Reports: No Symptoms Gastrointestinal: Reports: No Symptoms Genitourinary: Reports: No Symptoms Musculoskeletal: Reports: No Symptoms Skin: Reports: No Symptoms Neurological: Reports: No Symptoms Psychiatric: Reports: No Symptoms - Patient Data Vitals - Most Recent: Last Vital Signs Temp 37.1 C 09/11/17 07:46 Pulse 74 09/11/17 07:46 Resp 28 H 09/11/17 07:46 BP 143/91 H 09/11/17 07:46 Pulse Ox 91 L 09/11/17 07:46 Weight - Most Recent: 76.43 kg I&O - Last 24 hours: Intake & Output 09/10/17 09/11/17 09/11/17 22:59 06:59 14:59 Intake Total 1870 350 Output Total 1550 Balance 320 350 Lab Results - Last 24 hrs: Laboratory Results - last 24 hr 09/11/17 09/11/17 Range/Units 05:51 05:51 WBC 6.64 (4.23-9.07) K/mm3 RBC 3.71 L (4.63-6.08) M/mm3 Hgb 11.6 L (13.7-17.5) gm/L Hct 34.4 L (40.1-51.0) % MCV 92.7 H (79.0-92.2) fl MCH 31.3 (25.7-32.2) pg MCHC 33.7 (32.2-35.5) g/dl RDW Std Deviation 45.2 H (35.1-43.9) fL Plt Count 189 (163-337) K/mm3 MPV 10.7 (9.4-12.3) fl Neut % (Auto) 67.0 (34.0-67.9) % Lymph % (Auto) 18.7 L (21.8-53.1) % [place] % (Auto) 9.8 (5.3-12.2) % Eos % (Auto) 3.8 (0.8-7.0) Baso % (Auto) 0.5 (0.1-1.2) % Neut # (Auto) 4.46 (1.78-5.38) K/mm3 Lymph # (Auto) 1.24 L (1.32-3.57) K/mm3 [place] # (Auto) 0.65 (0.30-0.82) K/mm3 Eos # (Auto) 0.25 (0.04-0.54) K/mm3 Baso # (Auto) 0.03 (0.01-0.08) K/mm3 Sodium 142 (136-145) mEq/L Potassium 3.5 (3.5-5.1) mEq/L Chloride 111 H (98-107) mEq/L Carbon Dioxide 21 (21-32) mEq/L Anion Gap 13.5 (5-15) BUN 19 H (7-18) mg/dL Creatinine 0.8 (0.7-1.3) mg/dL Est Cr Clr Drug Dosing 56.49 mL/min Estimated GFR (MDRD) > 60 (>60) mL/min BUN/Creatinine Ratio 23.8 H (14-18) Glucose 93 (83-115) mg/dL Calcium 8.5 (8.5-10.1) mg/dL Magnesium 1.8 (1.8-2.4) mg/dl C-Reactive Protein 4.5 H* (<1.0) mg/dL RODRICK Results - Last 24 hrs: Microbiology 09/09/17 16:16 Gram Stain - Final Sputum - Expectorated Sputum Culture - Preliminary Med Orders - Current: Current Medications Acetaminophen (Tylenol) 650 mg PO Q4H PRN PRN Reason: Pain (Mild 1-3)/fever Hydrocodone Bitart/Acetaminophen ([place] 325-5 Mg) 1 tab PO Q4H PRN PRN Reason: Pain (moderate 4-6) Albuterol (Proventil Neb Soln) 2.5 mg NEB Q2H PRN PRN Reason: wheezing/SOB Albuterol/Ipratropium (Duoneb 3.0-0.5 Mg/3 Ml) 3 ml NEB QIDRT [facility] Last Admin: 09/11/17 06:27 Dose: 3 ml Ascorbic Acid (Vitamin C) 500 mg PO DAILY [facility] Last Admin: 09/11/17 08:25 Dose: 500 mg Bisacodyl (Dulcolax) 5 mg PO DAILY PRN PRN Reason: Constipation Buspirone HCl (Buspar) 5 mg PO DAILY [facility] Last Admin: 09/11/17 08:22 Dose: 5 mg Calcium Carbonate/Glycine (Calcium Carbonate) 600 mg PO DAILY [facility] Last Admin: 09/11/17 08:22 Dose: 600 mg Cholecalciferol (Vitamin D3) 1,000 units PO DAILY [facility] Last Admin: 09/11/17 08:25 Dose: 1,000 units Docusate Sodium (Colace) 100 mg PO BID PRN PRN Reason: Constipation Donepezil HCl (Aricept) 10 mg PO BEDTIME [facility] Last Admin: 09/10/17 20:08 Dose: 10 mg Famotidine (Pepcid) 20 mg PO DAILY [facility] Last Admin: 09/11/17 08:24 Dose: 20 mg Fish Oil (Fish Oil) 1 gm PO DAILY [facility] Last Admin: 09/11/17 08:23 Dose: 1 gm Guaifenesin (Mucinex) 1,200 mg PO BID [facility] Last Admin: 09/11/17 08:23 Dose: 1,200 mg Hydralazine HCl (Apresoline) 10 mg IVPUSH Q4H PRN PRN Reason: Hypertension Hydromorphone HCl (Dilaudid) 0.25 mg IVPUSH Q2H PRN PRN Reason: Pain (severe 7-10) Promethazine HCl 6.25 mg/ (Sodium Chloride) 50.25 mls @ 100 mls/hr IV Q6H PRN PRN Reason: Nausea/Vomiting Azithromycin 500 mg/ Sodium (Chloride) 250 mls @ 250 mls/hr IV Q24H [facility] Last Admin: 09/10/17 10:46 Dose: 250 mls/hr Ceftriaxone Sodium 1 gm/ (Sodium Chloride) 100 mls @ 200 mls/hr IV Q24H [facility] Last Admin: 09/11/17 08:40 Dose: 200 mls/hr Ibuprofen (Motrin) 400 mg PO Q6H PRN PRN Reason: Pain (mild 1-3) Lorazepam (Ativan) 0.25 mg IV Q6H PRN PRN Reason: Anxiety Last Admin: 09/10/17 22:57 Dose: 0.25 mg Magnesium Sulfate (Pharmacy To Dose - Magnesium Replacement) 1 dose .XX ASDIRECTED [facility] Memantine (Namenda) 10 mg PO BID [facility] Last Admin: 09/11/17 08:24 Dose: 10 mg Metoprolol Tartrate (Lopressor) 5 mg IVPUSH Q4H PRN PRN Reason: Tachycardia Multivitamins (Thera) 1 each PO DAILY [facility] Last Admin: 09/11/17 08:25 Dose: 1 each Ondansetron HCl (Zofran) 4 mg IV Q6H PRN PRN Reason: Nausea/Vomiting Bicalutamide 50mg 0 each PO DAILY [facility] Last Admin: 09/11/17 08:24 Dose: Not Given Saw/Vit E/Sod Roxann/Lyc/Beta/Pyg [ Prostate Health Caplet] 0 each PO DAILY [facility] Last Admin: 09/11/17 08:25 Dose: Not Given Polyethylene Glycol (Miralax) 17 gm PO DAILY PRN PRN Reason: Constipation Potassium Chloride (Pharmacy To Dose - Potassium Replacement) 1 dose .XX ASDIRECTED [facility] Saccharomyces Boulardii (Florastor) 250 mg PO DAILY [facility] Last Admin: 09/11/17 08:22 Dose: 250 mg Senna/Docusate Sodium (Senna Plus) 1 tab PO BID PRN PRN Reason: Constipation Sodium Chloride (Saline Flush) 10 ml FLUSH ASDIRECTED PRN PRN Reason: Keep Vein Open Last Admin: 12/28/17 15:19 Dose: 10 ml Temazepam (Restoril) 7.5 mg PO BEDTIME PRN PRN Reason: Sleep Last Admin: 09/10/17 21:48 Dose: 7.5 mg Vit A/Vit C/Vit E/Selen/Cu/Zn/Lutei (Icaps Mv) 1 tab PO DAILY [facility] Last Admin: 09/11/17 08:23 Dose: 1 tab Discontinued Medications Acetaminophen (Tylenol) 975 mg PO ONETIME ONE Stop: 09/08/17 15:08 Last Admin: 09/08/17 15:18 Dose: 975 mg Albuterol/Ipratropium (Duoneb 3.0-0.5 Mg/3 Ml) 3 ml NEB Q4H PRN PRN Reason: Shortness Of Breath/wheezing Albuterol/Ipratropium (Duoneb 3.0-0.5 Mg/3 Ml) 3 ml NEB QID JAMIE Famotidine (Pepcid) 20 mg PO BID [facility] Last Admin: 09/08/17 21:08 Dose: 20 mg Sodium Chloride (Normal Saline) 1,000 mls @ 1,000 mls/hr IV .BOLUS [facility] Last Admin: 09/08/17 15:27 Dose: 1,000 mls/hr Levofloxacin/Dextrose 750 mg/ (Premix) 150 mls @ 100 mls/hr IV ONETIME ONE Stop: 09/08/17 18:12 Last Admin: 09/08/17 16:56 Dose: 100 mls/hr Sodium Chloride (Normal Saline) 1,300 mls @ 1,000 mls/hr IV ONETIME ONE Stop: 09/08/17 18:09 Last Admin: 09/08/17 19:30 Dose: 1,000 mls/hr Sodium Chloride (Normal Saline) Confirm Administered Dose 1,000 mls @ as directed .ROUTE .STK-MED ONE Stop: 09/08/17 18:32 Last Admin: 09/08/17 18:58 Dose: Not Given Dextrose/Sodium Chloride (Dextrose 5%-Normal Saline) 1,000 mls @ 75 mls/hr IV ASDIRECTED [facility] Last Admin: 09/09/17 23:34 Dose: 75 mls/hr Ibuprofen (Motrin) 600 mg PO ONETIME ONE Stop: 09/08/17 18:06 Last Admin: 09/08/17 18:29 Dose: 600 mg Ondansetron HCl (Zofran) 4 mg IVPUSH ONETIME ONE Stop: 09/08/17 14:57 Last Admin: 09/08/17 15:19 Dose: 4 mg - Exam Quality Assessment: Reports: DVT Prophylaxis General: Reports: Alert, Oriented, No Acute Distress HEENT: Reports: Pupils Equal, Pupils Reactive, EOMI Neck: Reports: No JVD Lungs: Reports: Normal Respiratory Effort, Decreased Breath Sounds Cardiovascular: Reports: Regular Rate GI/Abdominal Exam: Normal Bowel Sounds, Soft, Non-Tender, No Organomegaly, No Distention (Male) Exam: Deferred Rectal (Males) Exam: Deferred Back Exam: Reports: Normal Inspection Extremities: Normal Inspection Skin: Reports: Warm Neurological: Reports: No New Focal Deficit Psy/Mental Status: Reports: Alert *Q Meaningful Use (DIS) - VTE *Q VTE Criteria *Q: - Stroke *Q Stroke Criteria *Q: - AMI *Q AMI Criteria *Q:
[2017-09-11] MEDS: Azithromycin 500 MG in Sodium Chloride 0.9% 250 ML IV SCH (10:10)
[2017-09-11] MEDS ORDERED: Sodium Chloride 0.9% 10 ML Syringe FLUSH ONE (10:15)
[2017-09-11] MEDS ORDERED: Iopamidol 755 Mg/ML 100 ML Bottle IVPUSH ONE (10:15)
[2017-09-11] MEDS: Sodium Chloride 0.9% 10 ML Syringe FLUSH PRN (11:13)
--- NOTE | 2017-09-11 12:10 | CT ---
CT chest Technique: Multiple axial sections through the chest were obtained. Intravenous contrast was utilized. Comparison: Prior chest x-ray of 09/10/17 is available. Findings: Parenchymal density is noted within the right lung base as well as small right sided pleural effusion. Parenchymal density also seen within the left perihilar region causing the left-sided nodular density on plain film exam. These 2 findings likely represent pneumonia. Pleural effusion within the right lung base is likely due to small parapneumonic effusion. Minimal parenchymal density within the left lung base which could represent additional focus of infection versus atelectasis. Mediastinum and hilar regions show no adenopathy or mass. Small portion of visualized upper abdominal structures shows an incidental cyst partially seen within the left kidney. Bone window settings were reviewed which shows mild degenerative change within the spine. Impression: 1. Increased density within the right lung base as well as left perihilar region most likely representing pneumonia. Additional density within the left lung base which could represent additional focus of infection versus atelectasis. 2. Small right-sided pleural effusion most likely due to parapneumonic effusion. 3. Other incidental findings as noted above. Diagnostic code #3
[2017-09-12] MEDS ORDERED: Azithromycin 250 MG Tab PO SCH (09:00)
[2017-09-12] MEDS ORDERED: Cephalexin 500 MG Cap PO SCH (09:00)
== END 2017-09-11 14:05 | disposition home or self-care (01) | DRG 871 ==
LOC: JD.ED 14:34 → JD.MS 17:29
PROVIDERS: ADMIT Internal Medicine; ATTEND Internal Medicine
DX: A41.9 Sepsis, unspecified organism (principal); J18.9 Pneumonia, unspecified organism; N17.9 Acute kidney failure, unspecified; C61 Malignant neoplasm of prostate; E86.0 Dehydration; R19.7 Diarrhea, unspecified; F03.90 Unspecified dementia, unspecified severity, without behavioral disturbance, psychotic disturbance, mood disturbance, and anxiety; R41.82 Altered mental status, unspecified; H35.30 Unspecified macular degeneration; M19.90 Unspecified osteoarthritis, unspecified site; Z85.46 Personal history of malignant neoplasm of prostate; R32 Unspecified urinary incontinence; F41.9 Anxiety disorder, unspecified; Z87.440 Personal history of urinary (tract) infections; Z91.81 History of falling; Z66 Do not resuscitate; R11.2 Nausea with vomiting, unspecified; Z79.899 Other long term (current) drug therapy
CPT/HCPCS: 36415; 70450; 80053; 81001; 83605; 84484; 85025; 87040 ×2; 87077; 87086; 87804 ×2; 87899; 93005; 96361; 96365; 96375; 99285; A9270; J1956; J2405; J7040 ×2; J7050; P9612; 71010; 71010-26; 71260; 71260-26; 80048; 83735; 86140; 86738; 87070; 87088; 87184; 87186; 87205; 93010; 94640; 94667; 94668; 94760; 94761; 97161-GP; 97165-GO; 97530-GO; 99284-25; J0456; J0696; J2060; J7030; J7042; Q9967